=== PATIENT | female | born 1995 | race Caucasian/White ===

== ENCOUNTER 2016-10-27 14:03 | Emergency (ER) | payer MEDICAID ==
[~2016-10-27] VITALS: Ht 157.5 cm; Wt 96.7 kg
[2016-10-27 14:29] VITALS: Ht 157.5 cm; Wt 96.7 kg
[2016-10-27 16:56] LABS: ADD UMIC YES; URINE BILIRUBIN (Dip) NEGATIVE (NEGATIVE); URINE BLOOD (Dip) 3+ (NEGATIVE); URINE COLOR DK. RED (YELLOW); URINE GLUCOSE (Dip) NEGATIVE (NEGATIVE); URINE KETONES (Dip) 15 (NEGATIVE); URINE LEUKOCYTE ESTERASE (Dip) 2+ (NEGATIVE); URINE NITRITE (Dip) POSITIVE (NEGATIVE); URINE TOTAL PROTEIN (Dip) 4+ (NEGATIVE); URINE UROBILINOGEN (Dip) 2.0 E.U./dL (0.1-1.0)
[2016-10-27 17:11] LABS: SQUAMOUS EPITHELIAL CELL,UR MANY; URINE RBCS >200 /HPF (0)
[2016-10-27 17:18] LABS: ADD SCAN DIFF NO
[2016-10-27 17:20] LABS: BASOPHILS % 0.4 % (0.0-2.0); EOSINOPHILS # 0.2 10^3/ul (0.0-0.5); EOSINOPHILS % 2.5 % (0.0-7.0); HEMATOCRIT 31.6 % (37.0-47.0); HEMOGLOBIN 10.8 g/dl (12.0-16.0); LYMPHOCYTES # 2.3 10^3/ul (0.8-2.9); MEAN CORPUSCULAR HGB CONC 34.2 g/dl (32.0-37.0); MEAN CORPUSCULAR VOLUME 81.9 fl (72.0-104.0); MEAN PLATELET VOLUME 10.1 fl (7.4-10.4); MONOCYTE # 0.5 10^3/ul (0.3-0.9); MONOCYTES % 6.9 % (0.0-13.0); NEUTROPHIL # 3.7 10^3/ul (1.6-7.5); NEUTROPHILS % 54.8 % (30.0-74.0); PLATELET COUNT 314 10^3/UL (140-415); RED BLOOD COUNT 3.86 10^6/ul (4.20-5.40); RED CELL DISTRIBUTION WIDTH 14.6 % (11.5-14.5); WHITE BLOOD COUNT 6.7 10^3/ul (4.8-10.8)
--- NOTE | 2016-10-27 17:47 | RADRPT ---
PROCEDURE: US Pelvis. CLINICAL INDICATION: Pelvic pain. Vaginal bleeding. TECHNIQUE: The pelvis was evaluated with transabdominal and transvaginal sonography in the axial a nd sagittal planes. COMPARISON: No prior study is available for comparison. FINDINGS: Uterus: 8.2 x 4.0 x 4.6 cm. Endometrium: 5.3 mm. Right ovary: 3.5 x 2.1 x 2.8 cm. Left ovary: 1.5 x 1.3 x 1.4 cm. Uterine masses: None. Ovarian masses: None. Color Doppler and pulsed Doppler sonography demonstrate normal flow to the ova latha. Other pelvic masses: None. Free fluid: None. IMPRESSION: 1. Normal pelvic ultrasound. RPTAT: QQ .Jaquan Vazquez MD, Date Time Electronically viewed and signed by .Jaquan Vazquez MD, on 10/27/2016 17:47 .R/
[2016-10-27] MEDS ORDERED: NITR-58 PO (18:27)
[2016-10-27] MEDS ORDERED: PHEN-538 PO (18:30)
--- NOTE | 2016-10-27 18:35 | ERD ---
ER Documentation Chief Complaint Date/Time DATE: 10/27/16 TIME: 18:32 Chief Complaint VB X4 WEEKS APPROX 5 PADS/DAY W/ CLOTS. HPI This is a 21-year-old female presenting to the emergency department complaining of vaginal bleeding for the past 4 weeks. Patient states that she is approximately 5 pads per day for the past week. She states that she has been having a few blood clots. Patient also admits to having pelvic pain located in the left that started yesterday. Patient denies any dizziness, chest pain, shortness of breath. Patient states that she has not followed up with a primary care physician. ROS All systems reviewed and are negative except as per history of present illness. Medications Home Meds Active Scripts Phenazopyridine Hcl* (Pyridium*) 200 Mg Tab, 200 MG PO TID Y for URINARY PAIN, # 10 TAB Prov:SOURAV CABRERA PA-C 10/27/16 Nitrofurantoin Monohyd Macrocr* (Macrobid*) 100 Mg Capsr, 100 MG PO HS for 7 Days, CAP Prov:SOURAV CABRERA PA-C 10/27/16 PMhx/Soc Medical and Surgical Hx: pt denies Medical Hx, pt denies Surgical Hx Hx Alcohol Use: No Hx Substance Use: No Hx Tobacco Use: No Smoking Status: Never smoker Physical Exam Vitals Vital Signs Date Time Temp Pulse Resp B/P Pulse Ox O2 Delivery O2 Flow Rate FiO2 10/27/16 14:29 98.4 87 16 128/63 98 Physical Exam General: well-developed/well-nourished, in no apparent distress, non-toxic appearing HENT: NC/AT Eyes: Conjunctiva normal Neck: Supple Pulm: CTA bilaterally, normal breathing CV: Normal S1S2 GI: Soft, non-distended, normal bowel sounds, TTP on suprapubic region Back: No midline tenderness, no masses, No CVAT Ext: No clubbing, cyanosis, or edema Neuro: Alert and orientated Skin: intact, normal turgor Psych: Normal mood and mentation Result Diagram: 10/27/16 0780 Results 24 hrs Laboratory Tests Test 10/27/16 16:29 10/27/16 17:05 Urine Bilirubin NEGATIVE Urine Clarity BLOODY Urine Color DK. RED Urine Glucose NEGATIVE% Urine Hemoglobin 3+ Urine Ketones 15 Urine Leukocyte Esterase 2+ Urine Microscopic RBC >200/HPF Urine Microscopic WBC 2-5/HPF Urine Nitrite POSITIVE Urine Specific [place] 1.015 Urine Squamous Epithelial Cells MANY Urine Total Protein 4+ Urine Urobilinogen 2.0 E.U./dL Urine pH 7.0 Basophils # 0.010^3/ul Basophils % 0.4% Eosinophils # 0.210^3/ul Eosinophils % 2.5% Hematocrit 31.6% Hemoglobin 10.8g/dl Lymphocytes # 2.310^3/ul Lymphocytes % 35.0% Mean Corpuscular Hemoglobin 28.0pg Mean Corpuscular Hemoglobin Concent 34.2g/dl Mean Corpuscular Volume 81.9fl Mean Platelet Volume 10.1fl Monocytes # 0.510^3/ul Monocytes % 6.9% Neutrophils # 3.710^3/ul Neutrophils % 54.8% Nucleated Red Blood Cells # 0.010^3/ul Nucleated Red Blood Cells % 0.0/100WBC Platelet Count 31910^3/UL Red Blood Count 3.8610^6/ul Red Cell Distribution Width 14.6% White Blood Count 6.710^3/ul Procedures/MDM This is a 21-year-old female presenting to the emergency department complaining of vaginal bleeding for the past 4 weeks swelling up to 5 pads per day for the past week. On examination patient has stable vital signs, she appears well. She did not seem to be hemo-dynamically unstable. Lab work was done. CBC did not show any significant anemia or leukocytosis. A urinalysis did show positive nitrite, leukocyte esterase and hemoglobin. Patient will be treated for a urinary tract infection with Macrobid. I have low suspicion for pyelonephritis, nephrolithiasis, anemia requiring transfusion. A pelvic ultrasound was done in the ED and did not show any evidence of any fibroids or other lesions. Radiologist is unremarkable. patient is hematuria stable for discharge with prescription of Macrobid and should precautions to return to the emergency room for any worsening signs or symptoms. I discussed with patient to follow-up with an [employer] tomorrow for further evaluation management in regards to her vaginal bleeding. Urine test is negative Departure Diagnosis: Primary Impression: Excessive vaginal bleeding Additional Impression: UTI (urinary tract infection) Urinary tract infection type: acute cystitis Hematuria presence: with hematuria Qualified Code: N30.01 - Acute cystitis with hematuria Condition: Stable Patient Instructions: Understanding Urinary Tract Infections (UTIs), Menorrhagia Referrals: [facility] [place] [address] [facility] [address] [place] [address] OFFICE FAX , APR[address] [place] [address] [address] [place]EDES, [place] [address] [place] [address] [address] [place], [facility] [address] [facility], [address] [facility] [address] [address] MASSE[place], [facility] [address] [place] [address] [facility] [address] [place] [address] [phone] [facility] [address] - [address] SANTILLAN, WALTER [address] [facility], [facility] [address] [address] [place], [place] [address] [facility]. [address], [place] [address] [address] TEE, [facility] [address] [place], [place] [id number] Additional Instructions: Visite a walsh raven amaya para un EXAMEN.Regrese a estas instalaciones si no se mejora agus esperbamos o agus le italiajimos. [place] toda la medicina sade y agus se le indic. Regrese a estas instalaciones si no se mejora agus esperbamos o agus le dijimos. SOURAV CABRERA PA-C Oct 27, 2016 18:35
== END 2016-10-27 18:47 | disposition home or self-care (01) ==
LOC: FTE 14:03
DX: N93.9 Abnormal uterine and vaginal bleeding, unspecified (principal); N30.01 Acute cystitis with hematuria; R10.2 Pelvic and perineal pain
CPT/HCPCS: 76830; 76856; 81001; 81003; 85025; 86850; 86900; 86901; Z7502

== ENCOUNTER 2017-02-01 18:52 | Emergency (ER) | payer MEDICAID ==
[~2017-02-01] VITALS: Ht 165.1 cm; Wt 92.5 kg
[~2017-02-01 18:52] MED LIST: NITR-58 PO; PHEN-538 PO
[2017-02-01 18:57] VITALS: Ht 165.1 cm; Wt 92.5 kg
[2017-02-01] MEDS ORDERED: ACETAMINOPHEN 325 MG TAB PO STA (20:14)
[2017-02-01] MEDS ORDERED: SOD CHLORIDE 0.9% 1,000 ML IV STA (20:14)
--- NOTE | 2017-02-01 20:20 | ERA ---
ER Documentation Chief Complaint Date/Time DATE: 02/01/17 TIME: 20:17 Chief Complaint vaginal bleeding x 2 weeks HPI This is an otherwise healthy 22-year-old female who presents with a chief complaint of vaginal bleeding. Patient describes vaginal bleeding as 2 weeks with heavy bleeding and "chunks" worsening over the past 1-2 days. Patient is sexually active. Patient also complains of mild lower abdominal/pelvic pain. Patient denies dysuria, discharge, fever, similar symptoms in the past, alleviating factors, dyspareunia, back pain or foul odor. ROS All systems reviewed and are negative except as per history of present illness. Medications Home Meds Active Scripts Phenazopyridine Hcl* (Pyridium*) 200 Mg Tab, 200 MG PO TID Y for URINARY PAIN, # 10 TAB Prov:SOURAV CABRERA PA-C 10/27/16 Nitrofurantoin Monohyd Macrocr* (Macrobid*) 100 Mg Capsr, 100 MG PO HS for 7 Days, CAP Prov:SOURAV CABRERA PA-C 10/27/16 Allergies Allergies: Coded Allergies: No Known Allergy (Unverified , 02/01/17) PMhx/Soc Hx Alcohol Use: No Hx Substance Use: No Hx Tobacco Use: No Physical Exam Vitals Physical Exam Const: Well-appearing obese 22-year-old female presented with her mother Head: Atraumatic Eyes: Normal Conjunctiva ENT: Normal External Ears, Nose and Mouth. Neck: Full range of motion..~ No meningismus. Resp: Clear to auscultation bilaterally Cardio: Regular rate and rhythm, no murmurs Abd: Soft, non tender, non distended. Normal bowel sounds. Mild pelvic tenderness. Skin: No petechiae or rashes Back: No midline or flank tenderness. No CVA tenderness. Ext: No cyanosis, or edema Neur: Awake and alert Psych: Normal Mood and Affect Neurological exam deferred. Results 24 hrs Laboratory Tests Test 02/01/17 20:33 White Blood Count 6.010^3/ul Red Blood Count 4.2510^6/ul Hemoglobin 9.5g/dl Hematocrit 31.3% Mean Corpuscular Volume 73.6fl Mean Corpuscular Hemoglobin 22.4pg Mean Corpuscular Hemoglobin Concent 30.4g/dl Red Cell Distribution Width 17.7% Platelet Count 65994^3/UL Mean Platelet Volume 10.5fl Neutrophils % 53.7% Lymphocytes % 37.4% Monocytes % 5.4% Eosinophils % 2.5% Basophils % 1.0% Nucleated Red Blood Cells % 0.0/100WBC Neutrophils # 3.210^3/ul Lymphocytes # 2.210^3/ul Monocytes # 0.310^3/ul Eosinophils # 0.210^3/ul Basophils # 0.110^3/ul Nucleated Red Blood Cells # 0.010^3/ul Prothrombin Time 13.6Sec Prothrombin Time Ratio 1.1 INR International Normalized Ratio 1.04 Activated Partial Thromboplast Time 29.0Sec Urine Color RED Urine Clarity CLOUDY Urine pH 6.5 Urine Specific [place] 1.025 Urine Ketones NEGATIVE Urine Nitrite NEGATIVE Urine Bilirubin NEGATIVE Urine Urobilinogen 0.2 E.U./dL Urine Leukocyte Esterase NEGATIVE Urine Microscopic RBC >50/HPF Urine Microscopic WBC 0-2/HPF Urine Squamous Epithelial Cells RARE Urine Hemoglobin 3+ Urine Glucose NEGATIVE% Urine Total Protein 1+ Sodium Level 144mmol/L Potassium Level 4.0mmol/L Chloride Level 109mmol/L Carbon Dioxide Level 23mmol/L Anion Gap 16 Blood Urea Nitrogen 12mg/dl Creatinine 0.66mg/dl Glucose Level 91mg/dl Calcium Level 9.3mg/dl Current Medications Medications (Trade) Dose Ordered Sig/Nupur Route PRN Reason Start Time Stop Time Status Last Admin Dose Admin Sodium Chloride (NS) 1,000 ml @ 1,000 mls/hr Q1H STAT IV 02/01/17 20:14 02/01/17 21:13 DC 02/01/17 20:49 Acetaminophen (Tylenol Tab) 650 mg ONCE STAT PO 02/01/17 20:14 02/01/17 20:17 DC 02/01/17 20:48 Procedures/MDM Patient was evaluated and worked up for bilateral lower quadrant abdominal/ pelvic discomfort and bleeding 2 weeks described as heavy with clots. The test was negative. Labs were significant for anemia and RBCs with urinalysis. The physical exam was unremarkable for symptoms/signs of anemia. Patient was given acetaminophen in the ED for mild pain with relief. Workup included labs and ultrasound of the abdomen and pelvis. The US results were read by the radiologist and are as follows: 1. Small bilateral ovarian follicles with a right paraovarian approximately 1 cm cyst, findings new compared to 10/27/2016. 2. Trace amount of free fluid in the cul-de-sac is new. 3. Sonographically normal uterus and endometrium, the endometrial thickness likely related to the patients phase of menstruation. I have reviewed these findings with my attending and have agreed that the most likely dx is primary vs secondary dysmenorrhea vs menorrhagia vs metromenorrhagia. The treatment plan will thus include out patient supportive therapy including iron supplements and NSAIDs to alleviate symptoms. At this time I do not suspect ovarian torsion, tubo-ovarian abscess, mechanical obstruction, ectopic , hernia, appendicitis, intestinal ischemia, PID, AAA, diverticulitis or cystitis. On repeat exam, the abdomen and pelvis remain nontender. The patient is well appearing, and tolerates PO. I have spoke with the patient regarding their condition and future management. They have verbally responded that they understand their status and treatment plan. The patients vitals are stable, and their current condition is appropriate for discharge. The patient will be given discharge instructions with return precautions. Departure Diagnosis: Primary Impression: Vaginal bleeding Additional Impressions: Dysmenorrhea Menorrhagia Qualified Code: N92.0 - Menorrhagia with regular cycle Condition: Stable Additional Instructions: Follow up with PCP in 1-3 days. Return to ER if symptoms change, worsen, or persist. HORTENCIA GAYTAN PA-C Feb 01, 2017 20:20
[2017-02-01 20:44] LABS: ADD SCAN DIFF NO
[2017-02-01 20:46] LABS: BASOPHIL # 0.1 10^3/ul (0.0-0.1); EOSINOPHILS # 0.2 10^3/ul (0.0-0.5); EOSINOPHILS % 2.5 % (0.0-7.0); HEMATOCRIT 31.3 % (37.0-47.0); HEMOGLOBIN 9.5 g/dl (12.0-16.0); LYMPHOCYTES # 2.2 10^3/ul (0.8-2.9); LYMPHOCYTES % 37.4 % (15.0-51.0); MEAN CORPUSCULAR HEMOGLOBIN 22.4 pg (29.0-33.0); MEAN CORPUSCULAR HGB CONC 30.4 g/dl (32.0-37.0); MEAN CORPUSCULAR VOLUME 73.6 fl (82.0-101.0); MEAN PLATELET VOLUME 10.5 fl (7.4-10.4); MONOCYTE # 0.3 10^3/ul (0.3-0.9); MONOCYTES % 5.4 % (0.0-11.0); NEUTROPHIL # 3.2 10^3/ul (1.6-7.5); NEUTROPHILS % 53.7 % (39.0-77.0); PLATELET COUNT 330 10^3/UL (140-415); RED BLOOD COUNT 4.25 10^6/ul (4.20-5.40); RED CELL DISTRIBUTION WIDTH 17.7 % (11.5-14.5)
[2017-02-01 20:56] LABS: ADD UMIC YES; UR BILIRUBIN (Dip) NEGATIVE (NEGATIVE); UR BLOOD (Dip) 3+ (NEGATIVE); UR CLARITY CLOUDY (CLEAR); UR COLOR RED (YELLOW); UR GLUCOSE (Dip) NEGATIVE (NEGATIVE); UR KETONES (Dip) NEGATIVE (NEGATIVE); UR LEUKOCYTE ESTERASE (Dip) NEGATIVE (NEGATIVE); UR NITRITE (Dip) NEGATIVE (NEGATIVE); UR TOTAL PROTEIN (Dip) 1+ (NEGATIVE); UR UROBILINOGEN (Dip) 0.2 E.U./dL (0.1-1.0)
[2017-02-01 21:01] LABS: INR 1.04; PROTIME 13.6 Sec (12.2-14.2); PT RATIO 1.1
[2017-02-01 21:03] LABS: CALCIUM 9.3 mg/dl (8.4-10.2); CREATININE 0.66 mg/dl (0.44-1.00)
[2017-02-01 21:08] LABS: URINE RBCS >50 /HPF (0)
[2017-02-01 21:09] LABS: UR SQUAMOUS EPITHELIAL CELL RARE
--- NOTE | 2017-02-01 22:29 | RADRPT ---
PROCEDURE: US Pelvis. CLINICAL INDICATION: Vaginal bleeding TECHNIQUE: Multiple sonographic images of the pelvis were obtained utilizing a transabdominal and endovaginal technique. The images were reviewed on a PACS workstation. COMPARISON: 10/27/2016 FINDINGS: Uterus: Normal in size, contour and echogenicity with no evidence for myometrial masses. Size is est imated at 8.2 x 4.6 x 4 cm. Cervix: No abnormalities of significance are seen. Endometrium: Normal in thickness for the patient's age; 13.4 mm. Normal blood flow on Doppler inter rogation. The thickness is likely related to the patients phase of menstruation. Right ovary / adnexa: Normal in size estimated at 4.4 x 2.3 x 2.1 cm. No evidence for masses, norm al blood flow on Doppler interrogation. Multiple follicles are present and there is a tiny paraovari an cyst of approximately 1.1 x 0.9 cm Left ovary/adnexa: Normal in size estimated at 3.5 x 2.2 x 1.7 cm. No evidence for solid masses, no rmal blood flow on Doppler interrogation. Small follicular cysts are present. Cul-de-sac: Trace amount of free fluid is present. RPTAT:HJJR IMPRESSION: 1. Small bilateral ovarian follicles with a right paraovarian approximately 1 cm cyst, findings new compared to 10/27/2016. 2. Trace amount of free fluid in the cul-de-sac is new. 3. Sonographically normal uterus and endometrium, the endometrial thickness likely related to the p atients phase of menstruation. Physician Edwin Date Time Electronically viewed and signed by Physician Edwin on 02/01/2017 22:28 /
== END 2017-02-01 23:20 | disposition home or self-care (01) ==
LOC: FTE 18:52
DX: N93.8 Other specified abnormal uterine and vaginal bleeding (principal); N94.6 Dysmenorrhea, unspecified; N92.0 Excessive and frequent menstruation with regular cycle; R10.2 Pelvic and perineal pain
CPT/HCPCS: 76830; 76856; 80048; 81001; 85025; 85610; 85730; 86850; 86900; 86901; J7030; Z7610